=== PATIENT | female | born 1995 | race Two or more races ===

== ENCOUNTER 2019-09-22 10:42 | Emergency (ER) | payer SELFPAY ==
[2019-09-22 14:04] LABS: C. TRACHOMATIS BY PCR NOT DETECTED; N. GONORRHOEAE BY PCR NOT DETECTED
--- NOTE | 2019-09-22 14:31 | EDM.PDOC ---
ED HPI GENERAL MEDICAL PROBLEM - General Chief Complaint: Genitourinary Problem Stated Complaint: VAGINAL PAIN Time Seen by Provider: 09/22/19 11:45 Source of Information: Reports: Patient History Limitations: Reports: No Limitations - History of Present Illness INITIAL COMMENTS - FREE TEXT/NARRATIVE: The patient presents with vaginal pain. This has been going on since 09/09/19. She was seen in an ER in [place]. They did all the STD testing and it was negative. She was told she had a UTI. She was treated for that and she still has the pain to the vaginal opening. She had some blood the other day also. She has no fever, chills, cough, chest pain, shortness of breath, abdominal pain , nausea or vomiting. She has no dysuria. She is not . Onset: Gradual Duration: Day(s): Location: Reports: Other (Pelvic area) Quality: Reports: Burning Severity: Moderate Improves with: Reports: None Worsens with: Reports: None Associated Symptoms: Reports: No Other Symptoms - Related Data Allergies Allergy/AdvReac Type Severity Reaction Status Date / Time No Known Allergies Allergy Verified 09/22/19 11:11 Home Meds: Home Meds . [No Known Home Meds] 09/22/19 [History] Past Medical History HEENT History: Reports: None Cardiovascular History: Reports: None Respiratory History: Reports: None Gastrointestinal History: Reports: None Genitourinary History: Reports: UTI, Recurrent [employer] EMISSIONS History: Reports: Therapeutic Musculoskeletal History: Reports: None Neurological History: Reports: None Psychiatric History: Reports: None Endocrine/Metabolic History: Reports: Obesity/BMI 30+ Hematologic History: Reports: None Immunologic History: Reports: None Oncologic (Cancer) History: Reports: None Dermatologic History: Reports: None - Infectious Disease History Infectious Disease History: Reports: None Social & Family History - Tobacco Use Smoking Status *Q: Never Smoker - Caffeine Use Caffeine Use: Reports: None - Recreational Drug Use Recreational Drug Use: No ED ROS GENERAL - Review of Systems Review Of Systems: See Below Constitutional: Reports: No Symptoms HEENT: Reports: No Symptoms Respiratory: Reports: No Symptoms Cardiovascular: Reports: No Symptoms Endocrine: Reports: No Symptoms GI/Abdominal: Reports: No Symptoms : Reports: Other (Vaginal and pelvic pain) Musculoskeletal: Reports: No Symptoms ED EXAM, RENAL/ - Physical Exam Exam: See Below Exam Limited By: No Limitations General Appearance: Alert, No Apparent Distress Ears: Normal External Exam Nose: Normal Inspection Head: Atraumatic, Normocephalic Neck: Normal Inspection Respiratory/Chest: No Respiratory Distress, Lungs Clear, Normal Breath Sounds Cardiovascular: Regular Rate, Rhythm, No Edema, No Murmur GI/Abdominal: Soft, Non-Tender, No Organomegaly, No Mass (Female) Exam: Other (Small skin tear to the lower vaginal opening. This does not appear to be herpes. Slight vaginal discharge.) Course - Vital Signs Last Recorded V/S: Last Vital Signs Temp 98.3 F 09/22/19 11:07 Pulse 60 09/22/19 11:07 Resp 16 09/22/19 11:07 BP 143/94 H 09/22/19 11:07 Pulse Ox 97 09/22/19 11:07 - Orders/Labs/Meds Orders: Active Orders 24 hr Category Date Time Status Pelvic Exam, Set Up [RC] ASDIRECTED Care 09/22/19 12:04 Active RAPID PLASMA REAGIN,RPR [CHEM] Stat Lab 09/22/19 12:11 Received Labs: Laboratory Tests 09/22/19 Range/Units 12:22 C trachomatis DNA (PCR) Not detected N gonorrhoeae DNA (PCR) Not detected - Re-Assessments/Exams Free Text/Narrative Re-Assessment/Exam: 09/22/19 14:30 I did a Wet prep and that looks good. I also did gonorrhea and chlamydia and that was negative. 09/22/19 14:35 It appears she has a tear. I will have her take some topical antibiotic ointment. Departure - Departure Time of Disposition: 14:40 Disposition: Home, Self-Care 01 Condition: Good Clinical Impression: Skin abrasion - Discharge Information *PRESCRIPTION DRUG MONITORING PROGRAM REVIEWED*: Not Applicable *COPY OF PRESCRIPTION DRUG MONITORING REPORT IN PATIENT NADIA: Not Applicable Referrals: PCP,Not In Area [Primary Care Provider] - Forms: ED Department Discharge Additional Instructions: Put some antibiotic ointment on the affected area 3 times per day. No vaginal intercourse for about a week to let this heal. Please return if you are worse. Sepsis Event Note - Evaluation Sepsis Screening Result: No Definite Risk - Focused Exam Vital Signs: Vital Signs Temp Pulse Resp BP Pulse Ox 09/22/19 11:07 98.3 F 60 16 143/94 H 97 Date Exam was Performed: 09/22/19 Time Exam was Performed: 14:35 - My Orders Last 24 Hours: My Active Orders 09/22/19 12:04 Pelvic Exam, Set Up [RC] ASDIRECTED 09/22/19 12:11 RAPID PLASMA REAGIN,RPR [CHEM] Stat - Assessment/Plan Last 24 Hours: My Active Orders 09/22/19 12:04 Pelvic Exam, Set Up [RC] ASDIRECTED 09/22/19 12:11 RAPID PLASMA REAGIN,RPR [CHEM] Stat
== END 2019-09-22 14:46 | disposition home or self-care (01) ==
LOC: JD.ED 10:42
DX: S31.41XA Laceration without foreign body of vagina and vulva, initial encounter (principal); E66.9 Obesity, unspecified; Z68.43 Body mass index [BMI] 50.0-59.9, adult; X58.XXXA Exposure to other specified factors, initial encounter
CPT/HCPCS: 36415; 86592; 87210; 87491; 87591; 87808; 99282; 99283